=== PATIENT | female | born 1975 | race Caucasian/White ===

== ENCOUNTER → 2019-10-17 | Outpatient (CLI) | payer BC ==
[~2019-10-17] MED LIST: COQ PO; FERR-46 PO; Iron PO; LEVO50TA PO; OMEGA PO; PREN1TAB60 PO; RED YEAST PO
[2019-10-17 15:00] LABS: BASOPHILS # (AUTO) 0.02 x10^3/uL (0-0.1); BASOPHILS % (AUTO) 0 % (0-1); EOSINOPHILS # (AUTO) 0.12 x10^3/uL (0-0.4); EOSINOPHILS % (AUTO) 2 % (1-7); LYMPHOCYTES # (AUTO) 2.44 x10^3/uL (1-3.4); LYMPHOCYTES % (AUTO) 39 % (22-44); MD NO; MEAN CORPUSCULAR HEMOGLOBIN 31.4 pg (27.0-34.8); MEAN CORPUSCULAR HGB CONC 32.8 g/dL (32.4-35.8); MEAN CORPUSCULAR VOLUME 95.7 fL (80-100); MEAN PLATELET VOLUME 7.3 fL (7.4-10.4); MONOCYTES % (AUTO) 6 % (2-9); NEUTROPHILS # (AUTO) 3.28 x10^3/uL (1.8-6.8); NEUTROPHILS % (AUTO) 52 % (42-75); PLATELET COUNT 306 x10^3/uL (130-400); RED BLOOD COUNT 4.51 x10^6/uL (3.82-5.3); RED CELL DISTRIBUTION WIDTH 12.1 % (9.6-15.2)
[2019-10-17 15:12] LABS: MICROSCOPIC NOT IND
== END | disposition home or self-care (01) ==
LOC: STAR 13:51
PROVIDERS: ATTEND Obstetrics & Gynecology
DX: Z01.818 Encounter for other preprocedural examination (principal); N39.3 Stress incontinence (female) (male)
CPT/HCPCS: 36415; 81003; 85025; 87635

== ENCOUNTER 2019-10-21 05:43 | Day surgery (SDC) | payer BC ==
[~2019-10-21] VITALS: Ht 170.2 cm; Wt 79.6 kg
[2019-10-21 06:24] VITALS: BP 125/78
[2019-10-21] MEDS ORDERED: OxyconTIN ER 10 MG TAB.ER PO ONE (06:30)
[2019-10-21] MEDS ORDERED: CHLORHEXIDINE 15 ML UDC MM ONE (06:30)
[2019-10-21] MEDS ORDERED: ACETAMINOPHEN 500 MG TABLET PO ONE (06:30)
[2019-10-21] MEDS ORDERED: LACTATED RINGERS 1,000 ML IV SCH (06:33)
[2019-10-21] MEDS ORDERED: BUPIVACAINE/PF-EPI 0.25% 1:200K ONE (06:36)
[2019-10-21] MEDS ORDERED: MIDAZOLAM 1 MG/ML, 2ML ONE (06:39)
[2019-10-21] MEDS ORDERED: FENTANYL PF 250 MCG/5ML ONE (06:39)
[2019-10-21] MEDS ORDERED: OXYcodone 5 MG/5 ML ORAL.SOL UDC PO PRN (07:00)
[2019-10-21] MEDS ORDERED: HALOPERIDOL 5 MG/ML IV PRN (07:00)
[2019-10-21] MEDS ORDERED: MEPERIDINE/PF 25MG/0.5ML IVPush PRN (07:00)
[2019-10-21] MEDS ORDERED: ONDANSETRON 2MG/ML, 2ML IVPush PRN (07:00)
[2019-10-21] MEDS ORDERED: FENTANYL PF 100 MCG/2ML IV PRN (07:00)
[2019-10-21] MEDS ORDERED: hydrALAzine 20 MG/ML, 1ML IV PRN (07:00)
[2019-10-21] MEDS ORDERED: morphine SULFATE 10 MG/ML, 1ML IVPush PRN (07:00)
[2019-10-21] MEDS ORDERED: HYDROmorphone 1 MG/ML, 1ML INJ IVPush PRN (07:00)
[2019-10-21] MEDS ORDERED: LABETALOL 5MG/ML, 20ML IV PRN (07:00)
[2019-10-21] MEDS ORDERED: VANCOMYCIN 500 MG ONE ×2 (07:02→07:03)
[2019-10-21] MEDS ORDERED: GENTAMICIN 80 MG/2 ML ONE (07:02)
[2019-10-21] MEDS ORDERED: SUGAMMADEX 200 MG/2 ML IVPush ONE (07:30)
[2019-10-21 07:32] LABS: HCG UR SG 1.022 (1.003-1.030)
[2019-10-21] MEDS ORDERED: NEOSTIGMINE 1 MG/ML, 10ML ONE (07:45)
[2019-10-21] MEDS ORDERED: GLYCOPYRROLATE 0.2MG/1ML, 5ML ONE (07:45)
[2019-10-21] MEDS ORDERED: CEFAZOLIN 1,000 MG ONE (07:45)
[2019-10-21] MEDS ORDERED: ONDANSETRON 2MG/ML, 2ML ONE ×2 (07:45→08:29)
[2019-10-21] MEDS ORDERED: ROCURONIUM 10MG/ML,5ML ONE (07:45)
[2019-10-21] MEDS ORDERED: DEXAMETHASONE 4 MG/ML, 1ML ONE (07:45)
[2019-10-21] MEDS ORDERED: PROPOFOL 10 MG/ML, 20ML ONE (07:45)
[2019-10-21] MEDS ORDERED: HALOPERIDOL 5 MG/ML ONE (09:04)
== END 2019-10-21 13:35 | disposition home or self-care (01) ==
LOC: OUT 05:43
PROVIDERS: ATTEND Obstetrics & Gynecology
DX: N39.3 Stress incontinence (female) (male) (principal); N36.41 Hypermobility of urethra; E03.9 Hypothyroidism, unspecified; E78.5 Hyperlipidemia, unspecified; Z79.890 Hormone replacement therapy; Z79.899 Other long term (current) drug therapy; Z88.1 Allergy status to other antibiotic agents; Z88.2 Allergy status to sulfonamides; Z98.890 Other specified postprocedural states
CPT/HCPCS: 36415; 57288; 81025; 86850; 86900; C1771; J0690; J1100; J1580; J1630; J2250; J2405; J2704; J2710; J3010; J3370; J7120; 87635